=== PATIENT | male | born 1990 | race Caucasian/White ===

== ENCOUNTER 2016-09-11 06:09 | Emergency (ER) | payer OTHER ==
[~2016-09-11] VITALS: Ht 172.7 cm; Wt 72.6 kg
[2016-09-11] MEDS ORDERED: ASPIRIN 81 MG TABLET CHEW PO ONE (07:00)
[2016-09-11] MEDS ORDERED: ASPIRIN 81 MG TABLET CHEW ONE (07:11)
[2016-09-11 07:47] LABS: BLOOD UREA NITROGEN 18 mg/dL (7-18)
[2016-09-11 07:59] LABS: IS PT STATUS REG ER OR PRE ER? YES
[2016-09-11 09:23] VITALS: BP 107/72
== END 2016-09-11 08:06 | disposition home or self-care (01) ==
LOC: ED 08:00
DX: R07.89 Other chest pain (principal); R06.02 Shortness of breath; F12.10 Cannabis abuse, uncomplicated
CPT/HCPCS: 36415; 71010; 80048; 82040; 83605; 84484; 85025; 85651; 93005